=== PATIENT | male | born 1975 | race Caucasian/White ===

== ENCOUNTER 2025-06-16 20:11 | Observation (INO) ==
[2025-06-16 20:36] LABS: Hematocrit (blood only) 41.6 % (42.0-52.0); Hemoglobin 13.7 g/dl (14.0-18.0); Immature Granulocytes # (auto) 0.02 K/uL (0.01-0.20); Immature Granulocytes % (auto) 0.3 %; Mean Corpuscular Hemoglobin 26.8 pg (25.0-34.0); Mean Corpuscular Volume 81.4 fL (80.0-100.0); Platelet Count 200 K/uL (130-400); RDW Standard Deviation 36.6 fL (36.4-46.3); Red Blood Count 5.11 M/uL (4.70-6.10); White Blood Count 6.95 K/ul (4.8-10.8)
[2025-06-16] MEDS: NITROGLYCERIN SL 0.4 MG/TAB TAB SL PRN (20:37)
[2025-06-16] MEDS: NITROGLYCERIN 2% OINTMENT 30GM TUBE EXT STA (20:38)
[2025-06-16] MEDS: SODIUM CHLORIDE 0.9% 500 ML IV STA (20:41)
[2025-06-16 20:54] LABS: Anion Gap 7.0 (3-11); Blood Urea Nitrogen 10.0 mg/dl (6-23); Calcium 9.2 mg/dl (8.6-10.3); Carbon Dioxide 26.0 mmol/L (21-32); Chloride 105.0 mmol/L (98-107); Creatinine Clr Calc Pharmacy 80.9 ml/min; Glucose 98.0 mg/dl (70-99(Fasting)); Lipase 64.0 U/L (11-82); Potassium 3.9 mmol/L (3.5-5.1); Sodium 138.0 mmol/L (136-145)
[2025-06-16 21:04] LABS: INR 1.1 (0.9-1.1); Partial Thromboplastin Time 26 Seconds (21-31); Prothrombin Time 11.1 Seconds (9.0-12.0)
[2025-06-16] MEDS: MoRPHine SULFATE 4 MG/ML 1 ML CARP\\VIAL ONE (21:05)
[2025-06-16] MEDS: MoRPHine SULFATE 2 MG/ML CARP IV STA (21:06)
[2025-06-16] MEDS: OPTIRAY 320 125ml IV ONE (21:24)
--- NOTE | 2025-06-16 22:07 | XRay Report ---
Exam(s): XR CXR 1 VIEW EXAM: XR Chest, 1 View CLINICAL HISTORY: Reason for exam: Chest pain, nonspecific. TECHNIQUE: Frontal view of the chest. COMPARISON: 11/30/2022 FINDINGS: Lungs: Unremarkable. No consolidation. Pleural space: Unremarkable. No pneumothorax. Heart: Unremarkable. No cardiomegaly. Mediastinum: Unremarkable. Normal mediastinal contour. Bones/joints: Unremarkable. No acute fracture. IMPRESSION: No acute pulmonary pathology Electronically signed by: Cristian Mathur MD 06/16/25 22:06 PM
--- NOTE | 2025-06-16 22:19 | CT Scan Report ---
Exam(s): CTA ABDOMEN + PELVIS With Contrast IV Amt: 115 ml optiray 320 EXAM: CT Abdomen and Pelvis With Intravenous Contrast CLINICAL HISTORY: Reason for exam: ro dissection. TECHNIQUE: Axial computed tomographic images of the abdomen and pelvis with intravenous contrast. CTDI is 70.48 mGy and DLP is 3039.38 mGy-cm. Automated exposure control was utilized for the study. A dose lowering technique was utilized adhering to the principles of ALARA. CONTRAST: Patient received 115 ml optiray 320 of IV contrast COMPARISON: No relevant prior studies available. FINDINGS: VASCULATURE: Aorta: No acute findings. No abdominal aortic aneurysm. No dissection. Celiac trunk and mesenteric arteries: No acute findings. No occlusion or significant stenosis. Renal arteries: No acute findings. No occlusion or significant stenosis. Iliac arteries: No acute findings. No occlusion or significant stenosis. Lung bases: Unremarkable. No mass. No consolidation. ABDOMEN: Liver: Hepatic steatosis. Gallbladder and bile ducts: Unremarkable. No calcified stones. No ductal dilation. Pancreas: Unremarkable. No ductal dilation. No mass. Spleen: Unremarkable. No splenomegaly. Adrenals: Unremarkable. No mass. Kidneys and ureters: Simple 5.2 cm left renal cysts. No follow-up of these simple cysts is necessary. No hydronephrosis. Stomach and bowel: Unremarkable. No obstruction. No mucosal thickening. PELVIS: Appendix: No findings to suggest acute appendicitis. Bladder: Mildly distended urinary bladder. Reproductive: Unremarkable as visualized. ABDOMEN and PELVIS: Intraperitoneal space: Unremarkable. No significant fluid collection. No free air. Bones/joints: Postop changes L4 through S1 interbody fusion postop changes anterior fusion L5-S1. No acute fracture. No dislocation. Soft tissues: Unremarkable. Lymph nodes: Unremarkable. No enlarged lymph nodes. IMPRESSION: No acute findings in the arteries of the abdomen and pelvis. Electronically signed by: Cristian Mathur MD 06/16/25 22:18 PM
--- NOTE | 2025-06-16 22:55 | CT Scan Report ---
Exam(s): CTA CHEST W/WO Contrast IV Amt: 116 ml optiray 320 EXAM: CT Angiography Chest Without and With Intravenous Contrast CLINICAL HISTORY: Reason for exam: ro dissection. TECHNIQUE: Axial computed tomographic angiography images of the chest without and with intravenous contrast. CTDI is 70.48 mGy and DLP is 3039.38 mGy-cm. Automated exposure control was utilized for the study. A dose lowering technique was utilized adhering to the principles of ALARA. MIP reconstructed images were created and reviewed. CONTRAST: Patient received 116 ml optiray 320 of IV contrast COMPARISON: No relevant prior studies available. FINDINGS: Pulmonary arteries: Unremarkable. No pulmonary embolism. Aorta: No acute findings. No thoracic aortic aneurysm. Lungs: Unremarkable. No mass. No consolidation. Pleural space: Unremarkable. No significant effusion. No pneumothorax. Heart: Unremarkable. No cardiomegaly. No significant pericardial effusion. No evidence of RV dysfunction. Bones/joints: No acute fracture. No dislocation. Soft tissues: Unremarkable. Lymph nodes: Unremarkable. No enlarged lymph nodes. Other findings: Please see separate dictation for details of the intra abdominal contents. IMPRESSION: No acute findings in the visualized arteries of the chest. Electronically signed by: Cristian Mathur MD 06/16/25 22:54 PM
[2025-06-16 23:01] LABS: Amphetamines+Metham, Urine Neg (Neg); MDMA (Ecstacy), Urine Neg (Neg); Marijuana, Urine Neg (Neg)
--- NOTE | 2025-06-17 00:27 | Emergency Department Note ---
History of Present Illness General Chief Complaint: Cardiac Assessment Stated Complaint: SOB, CHEST PAIN, DIAPHORETIC Time Seen by Provider: 06/16/25 20:19 History of Present Illness Provider Complaint: chest pain Onset (ago): hour(s) 1 Duration: constant and progressively worsening Onset: during exertion Pain Location: substernal and left chest Pain Radiation: LUE Severity: moderate Maximum Pain Intensity: 7 Quality: + heaviness (Pressure) Relieved By: + nothing Exacerbated By: + nothing Context: no recent illness, no recent surgery, no recent immobilization, no recent travel, no trauma/injury, no new medications or no history of DVT/PE Associated symptoms: + diaphoresis and + dyspnea; no nausea, no vomiting, no syncope, no palpitations, no fever, no cough or no leg swelling Treatments prior to arrival: aspirin and nitroglycerin Home Medications Medication Instructions Recorded Confirmed Type omega 8-pam-xqp-fish oil 60 mg-90 1 cap PO DAILY 02/09/22 06/16/25 History mg-500 mg capsule (Fish Oil) dapsone 5 % topical gel 1 applic topical QAM 11/30/22 06/16/25 History fluticasone propionate 50 1 spray intranasal BID 11/30/22 06/16/25 History mcg/actuation nasal spray,suspension tazarotene 0.1 % topical gel 1 applic topical DAILY 11/30/22 06/16/25 History atomoxetine 80 mg capsule 80 mg PO HS 06/16/25 06/16/25 History atorvastatin 20 mg tablet 20 mg PO QAM 06/16/25 06/16/25 History buprenorphine HCl 300 mcg buccal 300 mcg buccal BID 06/16/25 06/16/25 History film (Belbuca) cyclobenzaprine 5 mg tablet 5 mg PO BID PRN MUSCLE SPASMS 06/16/25 06/16/25 History doxepin 150 mg capsule 150 mg PO HS 06/16/25 06/16/25 History lumateperone 42 mg capsule 42 mg PO HS 06/16/25 06/16/25 History (Caplyta) omeprazole 40 mg capsule,delayed 40 mg PO BID 06/16/25 06/16/25 History release oxycodone-acetaminophen 5 mg-325 1 tab PO Q6H PRN Pain 06/16/25 06/16/25 History mg tablet tadalafil 5 mg tablet 5 mg PO DIRECTED 06/16/25 06/17/25 History Allergies Allergy/AdvReac Type Severity Reaction Status Date / Time No Known Allergies Allergy Verified 06/16/25 22:24 Past Med/Surg History Problem List Chronic pain syndrome (Chronic) Tremor (Chronic) Sleep apnea (Chronic) GERD (gastroesophageal reflux disease) (Chronic) Bipolar 1 disorder (Chronic) Medical History Failed spinal cord stimulator Surgical History History of lumbar fusion Social History Smoking Status: Never smoker Tobacco Type: Smokeless Tobacco (Dip or Chew) Preferred Language: Guatemalan marital status: Current Living Situation: Family current occupational status: employed Feels Safe at Home: Yes Physical Exam Vital Signs Vital Signs - 24 hr 06/16/25 20:16 06/16/25 20:29 06/16/25 20:30 Temperature 37 C Temperature Source Oral Pulse Rate 86 86 Pulse Rate [Left Apical] Respiratory Rate 18 Respiratory Effort / Characteristics Spontaneous Short of Breath Respiratory Depth Normal Respiratory Pattern Regular Blood Pressure 120/96 129/87 Blood Pressure [Left Arm] Blood Pressure Mean 104 93 Blood Pressure Mean [Left Arm] Pulse Oximetry 96 Oxygen Delivery Method Room Air Oxygen Flow Rate Sepsis Recent Fever Within 48 Hours No Sepsis New/Unexplained Change in Mental Status N/A Sepsis Action Taken by Nursing No Action Required 06/16/25 20:32 06/16/25 20:42 06/16/25 20:43 Temperature Temperature Source Pulse Rate 88 Pulse Rate [Left Apical] 104 H Respiratory Rate 25 H 24 Respiratory Effort / Characteristics Spontaneous Short of Breath Respiratory Depth Normal Respiratory Pattern Regular Blood Pressure Blood Pressure [Left Arm] 107/80 Blood Pressure Mean Blood Pressure Mean [Left Arm] 89 Pulse Oximetry 96 95 96 Oxygen Delivery Method Room Air Room Air Room Air Oxygen Flow Rate 0 Sepsis Recent Fever Within 48 Hours Sepsis New/Unexplained Change in Mental Status Sepsis Action Taken by Nursing 06/16/25 21:31 06/16/25 22:03 06/16/25 22:30 Temperature Temperature Source Pulse Rate 72 82 Pulse Rate [Left Apical] 76 Respiratory Rate 21 25 H 19 Respiratory Effort / Characteristics Spontaneous Short of Breath Respiratory Depth Normal Respiratory Pattern Regular Blood Pressure 131/92 127/90 Blood Pressure [Left Arm] 129/75 Blood Pressure Mean 105 102 Blood Pressure Mean [Left Arm] 93 Pulse Oximetry 98 98 97 Oxygen Delivery Method Room Air Room Air Room Air Oxygen Flow Rate Sepsis Recent Fever Within 48 Hours Sepsis New/Unexplained Change in Mental Status Sepsis Action Taken by Nursing Physical Exam HENT: Exam performed. - Head: Normocephalic and atraumatic. NECK: Normal range of motion. Neck supple. No JVD present. CV: Normal rate, regular rhythm, normal heart sounds and intact distal pulses. There is no peripheral edema. Palpable radial pulses bue. PULM/CHEST: Effort normal and breath sounds normal. No respiratory distress. No stridor. no wheezes. no rales. ABD: The abdomen is soft. There is no tenderness. NEURO: Motor and sensation grossly intact. SKIN: Diaphoretic Course Course 2019: The patient was evaluated in room B8. A complete history and physical exam was performed Cardiac monitoring: An order was placed for continuous cardiac monitoring. The monitor shows a rate of 70 with sinus rhythm interpreted by me 2040: Vital signs stable. Patient still reporting chest pain status post sublingual nitroglycerin. Nitropaste ordered for the patient. 2051: Patient still having chest pain. Morphine ordered for the patient. 2244: Vital signs stable. Patient reports chest pain is improved status post IV morphine. 5: Vital signs stable. Labs are unremarkable including 2 negative sets of high-sensitivity troponins. CTA of the chest abdomen pelvis negative for dissection. Patient reports that his pain is much better after receiving the IV morphine and having the Nitropaste on. Patient is no longer diaphoretic. Patient will be admitted to the [facility] team. Administered Medications Nitroglycerin (Nitroglycerin Sl 0.4 Mg/Tab Tab) 0.4 mg SL Q5M PRN PRN Reason: Chest Pain Stop: 07/16/25 20:21 Last Admin: 06/16/25 20:37 Dose: 0.4 mg Documented By: KASSANDRA Discontinued Medications Sodium Chloride (Nss) 500 mls @ 999 mls/hr IV .Q31M STA Stop: 06/16/25 20:52 Last Infusion: 06/16/25 22:00 Dose: Infused Documented By: Admin: 06/16/25 20:41 Dose: 999 mls/hr Documented By: SAMSON Ioversol (Optiray 320 125ml) 115 ml IV ONCE ONE Stop: 06/16/25 21:24 Last Admin: 06/16/25 21:24 Dose: 115 ml Documented By: NIXON Morphine Sulfate (Morphine Sulfate 2 Mg/Ml Carp) 2 mg IV NOW STA Stop: 06/16/25 20:53 Last Admin: 06/16/25 21:06 Dose: 2 mg Documented By: SAMSON Morphine Sulfate (Morphine Sulfate 4 Mg/Ml 1 Ml Carp\\Vial) Confirm Administered Dose 4 mg .ROUTE .STK-MED ONE Stop: 06/16/25 21:04 Last Admin: 06/16/25 21:05 Dose: Not Given Documented By: SAMSON Nitroglycerin (Nitroglycerin 2% Ointment 30gm Tube) 0.5 inch EXT NOW STA Stop: 06/16/25 20:23 Last Admin: 06/16/25 20:38 Dose: 0.5 inch Documented By: SAMSON Medical Decision Making Laboratory Data Attestation: I reviewed the patient's lab results. 06/16/25 20:24 06/16/25 20:24 Labs: Lab Results 06/16/25 06/16/25 06/16/25 Range/Units 20:24 20:30 21:45 WBC 6.95 (4.8-10.8) K/ul RBC 5.11 (4.70-6.10) M/uL Hgb 13.7 L (14.0-18.0) g/dl POC Hgb 14.6 (14.0-18.0) g/dl Hct 41.6 L (42.0-52.0) % POC Hct 43 (42-52) % MCV 81.4 (80.0-100.0) fL MCH 26.8 (25.0-34.0) pg MCHC 32.9 (32.0-36.0) g/dL RDW Std Deviation 36.6 (36.4-46.3) fL RDW Coeff of Arturo 12.5 (11.5-14.5) % Plt Count 200 (130-400) K/uL MPV 9.2 L (9.4-12.4) fL Immature Gran % (Auto) 0.3 % Neut % (Auto) 65.3 % Lymph % (Auto) 24.2 % [place] % (Auto) 7.6 % Eos % (Auto) 2.3 % Baso % (Auto) 0.3 % Neut # (Auto) 4.54 (1.40-6.50) K/uL Lymph # (Auto) 1.68 (1.20-3.40) K/uL [place] # (Auto) 0.53 (0.11-0.59) K/uL Eos # (Auto) 0.16 (0.00-0.50) K/uL Baso # (Auto) 0.02 (0.00-0.20) K/uL Immature Gran # (Auto) 0.02 (0.01-0.20) K/uL PT 11.1 (9.0-12.0) Seconds INR 1.1 (0.9-1.1) APTT 26 (21-31) Seconds PTT Ratio 1.0 POC Sodium 140 (135-144) mmol/L Sodium 138 (136-145) mmol/L POC Potassium 3.9 (3.3-5.0) mmol/L Potassium 3.9 (3.5-5.1) mmol/L POC Chloride 105 (101-112) mmol/L Chloride 105 (98-107) mmol/L Carbon Dioxide 26 (21-32) mmol/L POC Total CO2 24 (24-31) mmol/L Anion Gap 7 (3-11) POC Anion Gap 16.0 (16-25) mmol/L POC BUN 8 (7-18) mg/dl BUN 10 (6-23) mg/dl Creatinine 1.41 H (0.6-1.4) mg/dl POC Creatinine 1.5 H (0.6-1.3) mg/dl Est Cr Clr Drug Dosing 80.9 ml/min eGFR 61.09 BUN/Creatinine Ratio 7.1 L (10-20) Glucose 98 (70-99(Fasting)) mg/dl POC Glucose (other) 95 (70-99) mg/dl Calcium 9.2 (8.6-10.3) mg/dl POC Ioniz Calcium Sonny 1.19 (1.12-1.32) mmol/l Troponin I High Sens 3.0 (0-20) pg/ml Lipase 64 (11-82) U/L Urine Opiates Screen Pos H (Neg) Ur Methadone, Qual Neg (Neg) Urine Fentanyl Screen Neg (Neg) Urine Barbiturates Neg (Neg) Ur Phencyclidine (PCP) Neg (Neg) U Amphetamin/Meth Scrn Neg (Neg) MDMA (Ecstasy) Screen Neg (Neg) U Benzodiazepines Scrn Neg (Neg) [place] < 0.1 L (0.6-1.2) mmol/L Ur Cocaine Metabolite Neg (Neg) U Marijuana (THC) Screen Neg (Neg) 06/16/25 Range/Units 22:24 WBC (4.8-10.8) K/ul RBC (4.70-6.10) M/uL Hgb (14.0-18.0) g/dl POC Hgb (14.0-18.0) g/dl Hct (42.0-52.0) % POC Hct (42-52) % MCV (80.0-100.0) fL MCH (25.0-34.0) pg MCHC (32.0-36.0) g/dL RDW Std Deviation (36.4-46.3) fL RDW Coeff of Arturo (11.5-14.5) % Plt Count (130-400) K/uL MPV (9.4-12.4) fL Immature Gran % (Auto) % Neut % (Auto) % Lymph % (Auto) % [place] % (Auto) % Eos % (Auto) % Baso % (Auto) % Neut # (Auto) (1.40-6.50) K/uL Lymph # (Auto) (1.20-3.40) K/uL [place] # (Auto) (0.11-0.59) K/uL Eos # (Auto) (0.00-0.50) K/uL Baso # (Auto) (0.00-0.20) K/uL Immature Gran # (Auto) (0.01-0.20) K/uL PT (9.0-12.0) Seconds INR (0.9-1.1) APTT (21-31) Seconds PTT Ratio POC Sodium (135-144) mmol/L Sodium (136-145) mmol/L POC Potassium (3.3-5.0) mmol/L Potassium (3.5-5.1) mmol/L POC Chloride (101-112) mmol/L Chloride (98-107) mmol/L Carbon Dioxide (21-32) mmol/L POC Total CO2 (24-31) mmol/L Anion Gap (3-11) POC Anion Gap (16-25) mmol/L POC BUN (7-18) mg/dl BUN (6-23) mg/dl Creatinine (0.6-1.4) mg/dl POC Creatinine (0.6-1.3) mg/dl Est Cr Clr Drug Dosing ml/min eGFR BUN/Creatinine Ratio (10-20) Glucose (70-99(Fasting)) mg/dl POC Glucose (other) (70-99) mg/dl Calcium (8.6-10.3) mg/dl POC Ioniz Calcium Sonny (1.12-1.32) mmol/l Troponin I High Sens 2.6 (0-20) pg/ml Lipase (11-82) U/L Urine Opiates Screen (Neg) Ur Methadone, Qual (Neg) Urine Fentanyl Screen (Neg) Urine Barbiturates (Neg) Ur Phencyclidine (PCP) (Neg) U Amphetamin/Meth Scrn (Neg) MDMA (Ecstasy) Screen (Neg) U Benzodiazepines Scrn (Neg) [place] (0.6-1.2) mmol/L Ur Cocaine Metabolite (Neg) U Marijuana (THC) Screen (Neg) Imaging Data Chest x-ray: Attestation: I personally reviewed and interpreted this imaging study as follows: My impression: Chest x-ray negative. Airway clear. No pneumothorax. No consolidation. No cardiomegaly or cephalization.. No free air under the diaphragm. No fractures of the skeletal structures. Radiologist's impression: Exam(s): XR CXR 1 VIEW EXAM: XR Chest, 1 View CLINICAL HISTORY: Reason for exam: Chest pain, nonspecific. TECHNIQUE: Frontal view of the chest. COMPARISON: 11/30/2022 FINDINGS: Lungs: Unremarkable. No consolidation. Pleural space: Unremarkable. No pneumothorax. Heart: Unremarkable. No cardiomegaly. Mediastinum: Unremarkable. Normal mediastinal contour. Bones/joints: Unremarkable. No acute fracture. IMPRESSION: No acute pulmonary pathology Electronically signed by: Cristian Mathur MD 06/16/25 22:06 PM Dictated: 06/16/252205 Transcribed: 06/16/252205 CT scan - chest: Radiologist's impression: Exam(s): CTA CHEST W/WO Contrast IV Amt: 116 ml optiray 320 EXAM: CT Angiography Chest Without and With Intravenous Contrast CLINICAL HISTORY: Reason for exam: ro dissection. TECHNIQUE: Axial computed tomographic angiography images of the chest without and with intravenous contrast. CTDI is 70.48 mGy and DLP is 3039.38 mGy-cm. Automated exposure control was utilized for the study. A dose lowering technique was utilized adhering to the principles of ALARA. MIP reconstructed images were created and reviewed. CONTRAST: Patient received 116 ml optiray 320 of IV contrast COMPARISON: No relevant prior studies available. FINDINGS: Pulmonary arteries: Unremarkable. No pulmonary embolism. Aorta: No acute findings. No thoracic aortic aneurysm. Lungs: Unremarkable. No mass. No consolidation. Pleural space: Unremarkable. No significant effusion. No pneumothorax. Heart: Unremarkable. No cardiomegaly. No significant pericardial effusion. No evidence of RV dysfunction. Bones/joints: No acute fracture. No dislocation. Soft tissues: Unremarkable. Lymph nodes: Unremarkable. No enlarged lymph nodes. Other findings: Please see separate dictation for details of the intra abdominal contents. IMPRESSION: No acute findings in the visualized arteries of the chest. Electronically signed by: Cristian Mathur MD 06/16/25 22:54 PM Dictated: 06/16/252253 Transcribed: 06/16/252253 CT scan - abdomen: Radiologist's impression: EXAM: CT Abdomen and Pelvis With Intravenous Contrast CLINICAL HISTORY: Reason for exam: ro dissection. TECHNIQUE: Axial computed tomographic images of the abdomen and pelvis with intravenous contrast. CTDI is 70.48 mGy and DLP is 3039.38 mGy-cm. Automated exposure control was utilized for the study. A dose lowering technique was utilized adhering to the principles of ALARA. CONTRAST: Patient received 115 ml optiray 320 of IV contrast COMPARISON: No relevant prior studies available. FINDINGS: VASCULATURE: Aorta: No acute findings. No abdominal aortic aneurysm. No dissection. Celiac trunk and mesenteric arteries: No acute findings. No occlusion or significant stenosis. Renal arteries: No acute findings. No occlusion or significant stenosis. Iliac arteries: No acute findings. No occlusion or significant stenosis. Lung bases: Unremarkable. No mass. No consolidation. ABDOMEN: Liver: Hepatic steatosis. Gallbladder and bile ducts: Unremarkable. No calcified stones. No ductal dilation. Pancreas: Unremarkable. No ductal dilation. No mass. Spleen: Unremarkable. No splenomegaly. Adrenals: Unremarkable. No mass. Kidneys and ureters: Simple 5.2 cm left renal cysts. No follow-up of these simple cysts is necessary. No hydronephrosis. Stomach and bowel: Unremarkable. No obstruction. No mucosal thickening. PELVIS: Appendix: No findings to suggest acute appendicitis. Bladder: Mildly distended urinary bladder. Reproductive: Unremarkable as visualized. ABDOMEN and PELVIS: Intraperitoneal space: Unremarkable. No significant fluid collection. No free air. Bones/joints: Postop changes L4 through S1 interbody fusion postop changes anterior fusion L5-S1. No acute fracture. No dislocation. Soft tissues: Unremarkable. Lymph nodes: Unremarkable. No enlarged lymph nodes. IMPRESSION: No acute findings in the arteries of the abdomen and pelvis. Electronically signed by: Cristian Mathur MD 06/16/25 22:18 PM Dictated: 06/16/252217 Transcribed: 06/16/252217 ECG Data Attestation: I personally reviewed and interpreted this ECG as follows: Additional Comments: EKG #1 at 2015: Sinus rhythm with a rate of 79. [place] QRS and QTc intervals within normal limits. No ST elevation or ST depression. EKG #2 at 2156: Sinus rhythm with rate of 70. [place] QRS and QTc intervals are within normal limits. No ST elevation or ST depression. [facility] Narrative 2019: The patient was evaluated in room B8. A complete history and physical exam was performed Cardiac monitoring: An order was placed for continuous cardiac monitoring. The monitor shows a rate of 70 with sinus rhythm interpreted by nd 2039: Vital signs stable. Patient still reporting chest pain status post sublingual nitroglycerin. Nitropaste ordered for the patient. 2051: Patient still having chest pain. Morphine ordered for the patient. 2244: Vital signs stable. Patient reports chest pain is improved status post IV morphine. 2324: Vital signs stable. Labs are unremarkable including 2 negative sets of high-sensitivity troponins. CTA of the chest abdomen pelvis negative for dissection. Patient reports that his pain is much better after receiving the IV morphine and having the Nitropaste on. Patient is no longer diaphoretic. Patient will be admitted to the [facility] team. Impression & Plan Chest pain Discharge Plan Visit Data Chief Complaint: Cardiac Assessment Stated Complaint: SOB, CHEST PAIN, DIAPHORETIC ED Provider: Saman Miller Discharge Problem: Chest pain Patient Disposition: Admitted As Inpatient Condition: Fair Forms Stand Alone Forms: [facility] Prescriptions Prescriptions: No Action omega 2-ren-vux-fish oil [Fish Oil] 60-90-500 mg Capsule 1 cap PO DAILY tazarotene 0.1 % Gel 1 applic TOPICAL DAILY fluticasone propionate 50 mcg/actuation spray,suspension 1 spray INTRANASAL BID dapsone 5 % gel 1 applic TOPICAL QAM atorvastatin 20 mg tablet 20 mg PO QAM omeprazole 40 mg capsule,delayed release(DR/EC) 40 mg PO BID oxycodone-acetaminophen 5-325 mg tablet 1 tab PO Q6H PRN (Reason: Pain) doxepin 150 mg capsule 150 mg PO HS cyclobenzaprine 5 mg Tablet 5 mg PO BID PRN (Reason: MUSCLE SPASMS) tadalafil 5 mg Tablet 5 mg PO DIRECTED Rx Instructions: PRN ED atomoxetine 80 mg capsule 80 mg PO HS buprenorphine HCl [Belbuca] 300 mcg film 300 mcg BUCCAL BID Rx Instructions: PER PT "RAN OUT, PHARMACY NEEDS TO REFILL". Caplyta 42 mg capsule 42 mg PO HS Referrals Referrals: Lacey Slade DO [Primary Care Provider] - Discharge Problem: Chest pain Qualifiers: Chest pain type: unspecified Qualified Code(s): R07.9 - Chest pain, unspecified
--- NOTE | 2025-06-17 00:31 | History & Physical Report ---
Date of Service June 17, 2025 Assessment & Plan (1) Chest pain: Plan: 50-year-old male with past medical history significant for high triglycerides, prediabetes, chronic maxillary sinusitis, obstructive sleep apnea nontolerant to CPAP, uncontrolled hypertension, GERD, Romano's esophagus, fatty liver, renal angiomyolipoma, CKD stage IIIa, spondylolisthesis of lumbar region, postlaminectomy syndrome, multiple lipomas, degenerative disc disease, chronic pain syndrome, essential tremor, bipolar 2 disorder, erectile dysfunction, spinal cord stimulator status, generalized anxiety disorder, presents for chest pain. Patient states around 7 PM after coming from football practice noticed chest pain 8/10 in severity. Pain is all over the chest. Pressure-like feeling. No radiation. Associated with some shortness of breath. Possibly some sweating. Denies any dizziness. No nausea. No headache. Vision is okay. No runny nose or sore throat. No cough. No abdominal pain. Normal bowel and bladder movements. After Nitropaste and morphine in the ER pain is improving. Hemodynamics are okay. Chest pain EKG and 2 sets of troponin negative Received Nitropaste and morphine in the ER Will continue nitro sublingual as needed and IV morphine as needed CTA chest and CTA abdomen pelvis no acute findings N.p.o. Will follow serial cardiac enzymes and echocardiogram Med/telemetry Cardiac consult in a.m. for further recommendations Prediabetes Will follow HbA1c levels Bipolar disorder Continue home medications Chronic pain On Belbuca and oxycodone as needed Obstructive sleep apnea Intolerant to CPAP machine Hyperlipidemia On statin GERD Romano's esophagus Omeprazole History of hypertension Currently not on medications Will monitor Erectile dysfunction On Cialis as needed Patient says did not use it for the last 1 month DVT prophylaxis SCDs Disposition Observation med/telemetry Full code History of Present Illness Chief Complaint: Chest pain Primary Care Provider: Lacey Slade DO 50-year-old male with past medical history significant for high triglycerides, prediabetes, chronic maxillary sinusitis, obstructive sleep apnea nontolerant to CPAP, uncontrolled hypertension, GERD, Romano's esophagus, fatty liver, renal angiomyolipoma, CKD stage IIIa, spondylolisthesis of lumbar region, postlaminectomy syndrome, multiple lipomas, degenerative disc disease, chronic pain syndrome, essential tremor, bipolar 2 disorder, erectile dysfunction, spinal cord stimulator status, generalized anxiety disorder, presents for chest pain. Patient states around 7 PM after coming from football practice noticed chest pain 8/10 in severity. Pain is all over the chest. Pressure-like feeling. No radiation. Associated with some shortness of breath. Possibly some sweating. Denies any dizziness. No nausea. No headache. Vision is okay. No runny nose or sore throat. No cough. No abdominal pain. Normal bowel and bladder movements. After Nitropaste and morphine in the ER pain is improving. Hemodynamics are okay. Past medical history. As mentioned above. Past surgical history. Bone marrow aspiration for spine. Right carpal tunnel surgery. Colonoscopy. EGD. Osteogenic stimulator spine in 2014. Reconstructionof nose septum. Total thyroid lobectomy unilateral. Removal of turbinate bones. Lumbar laminectomy. 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 Revision ulnar nerve at elbow right side. Lumbar spine fusion. Excision of soft tissue tumor in left thigh. Social history. . No smoking. Snuffs tobacco. Currently no alcohol as per records. No drug use. Family history. Brother had asthma. Paternal grandfather had blood disorder. Father had lung cancer. Multiple myeloma. Paternal cousin had thyroid cancer. Paternal uncle had cancer. Maternal aunt had pancreatic cancer. Allergies Allergy/AdvReac Type Severity Reaction Status Date / Time No Known Allergies Allergy Verified 06/16/25 22:24 Home Medications Medication Instructions Recorded Confirmed Type omega 9-ksh-vnp-fish oil 60 mg-90 1 cap PO DAILY 02/09/22 06/16/25 History mg-500 mg capsule (Fish Oil) dapsone 5 % topical gel 1 applic topical QAM 11/30/22 06/16/25 History fluticasone propionate 50 1 spray intranasal BID 11/30/22 06/16/25 History mcg/actuation nasal spray,suspension tazarotene 0.1 % topical gel 1 applic topical DAILY 11/30/22 06/16/25 History atomoxetine 80 mg capsule 80 mg PO HS 06/16/25 06/16/25 History atorvastatin 20 mg tablet 20 mg PO QAM 06/16/25 06/16/25 History buprenorphine HCl 300 mcg buccal 300 mcg buccal BID 06/16/25 06/16/25 History film (Belbuca) cyclobenzaprine 5 mg tablet 5 mg PO BID PRN MUSCLE SPASMS 06/16/25 06/16/25 History doxepin 150 mg capsule 150 mg PO HS 06/16/25 06/16/25 History lumateperone 42 mg capsule 42 mg PO HS 06/16/25 06/16/25 History (Caplyta) omeprazole 40 mg capsule,delayed 40 mg PO BID 06/16/25 06/16/25 History release oxycodone-acetaminophen 5 mg-325 1 tab PO Q6H PRN Pain 06/16/25 06/16/25 History mg tablet tadalafil 5 mg tablet 5 mg PO DIRECTED 06/16/25 06/17/25 History Past Med/Surg History Problem List (Updated 06/17/25 @ 00:27 by Timmy Vance MD) Chest pain Chronic pain syndrome (Chronic) Tremor (Chronic) Sleep apnea (Chronic) GERD (gastroesophageal reflux disease) (Chronic) Bipolar 1 disorder (Chronic) Medical History Failed spinal cord stimulator Surgical History History of lumbar fusion Social History Smoking Status: Never smoker Tobacco Type: Smokeless Tobacco (Dip or Chew) Do You Dip or Chew Tobacco: Yes; Hx Alcohol Use: No Hx Substance Use: No Preferred Language: Kiswahili Communication Ability: Effective Retail Pharmacy Technician Required: No Beliefs That Will Affect Care: None marital status: Current Living Situation: Spouse and Family current occupational status: employed Feels Safe at Home: Yes Safety Concerns: Feels Safe At This Time Assistive Devices: None Review of Systems Review of Systems: All systems reviewed & are unremarkable except as noted in HPI & below Physical Exam Physical Exam: General- Not in distress Head- atraumatic Eyes- PERRL. ENT- oropharynx clear Neck- supple, no JVD. Lungs- clear to auscultation no wheezing or crackles Heart- regular rhythm; no murmur, no gallop. Abdomen- normal bowel sounds, soft, nontender, no distension Extremities- no pretibial edema, no erythema seen Neuro- alert, oriented PERRL, no facial palsy; no dysarthria; moves extremities Results & Data Results & Data Vital Signs (Past 12 Hours) Vital Signs Temp Pulse Pulse Resp BP BP Pulse Ox 10/14/25 22:30 82 19 127/90 97 06/16/25 22:03 72 25 H 131/92 98 06/16/25 21:31 76 21 129/75 98 06/16/25 20:43 104 H 24 107/80 96 06/16/25 20:42 95 06/16/25 20:32 88 25 H 96 06/16/25 20:30 129/87 06/16/25 20:29 37 C 86 18 120/96 96 06/16/25 20:16 86 O2 Del Method O2 Flow Rate 06/16/25 22:30 Room Air 06/16/25 22:03 Room Air 06/16/25 21:31 Room Air 06/16/25 20:43 Room Air 06/16/25 20:42 Room Air 0 06/16/25 20:32 Room Air 06/16/25 20:30 06/16/25 20:29 Room Air 06/16/25 20:16 Diagnostic Findings Laboratory Results WBC 6.95 K/ul (4.8-10.8) 06/16/25 20:24 RBC 5.11 M/uL (4.70-6.10) 06/16/25 20:24 Hgb 13.7 g/dl (14.0-18.0) L 06/16/25 20:24 POC Hgb 14.6 g/dl (14.0-18.0) 06/16/25 20:30 Hct 41.6 % (42.0-52.0) L 06/16/25 20:24 POC Hct 43 % (42-52) 06/16/25 20:30 MCV 81.4 fL (80.0-100.0) 06/16/25 20:24 MCH 26.8 pg (25.0-34.0) 06/16/25 20:24 MCHC 32.9 g/dL (32.0-36.0) 06/16/25 20:24 RDW Std Deviation 36.6 fL (36.4-46.3) 06/16/25 20:24 RDW Coeff of Arturo 12.5 % (11.5-14.5) 06/16/25 20:24 Plt Count 200 K/uL (130-400) 06/16/25 20:24 MPV 9.2 fL (9.4-12.4) L 06/16/25 20: Immature Gran % (Auto) 0.3 % 06/16/25 20:24 Neut % (Auto) 65.3 % 06/16/25 20: Lymph % (Auto) 24.2 % 06/16/25 20: [place] % (Auto) 7.6 % 06/16/25 20: Eos % (Auto) 2.3 % 06/16/25: Baso % (Auto) 0.3 % 06/16/25: Neut # (Auto) 4.54 K/uL (1.40-6.50) 06/16/25: Lymph # (Auto) 1.68 K/uL (1.20-3.40) 06/16/25 20: [place] # (Auto) 0.53 K/uL (0.11-0.59) 06/16/25 20: Eos # (Auto) 0.16 K/uL (0.00-0.50) 06/16/25: Baso # (Auto) 0.02 K/uL (0.00-0.20) 06/16/25 20: Immature Gran # (Auto) 0.02 K/uL (0.01-0.20) 06/16/25 20: PT 11.1 Seconds (9.0-12.0) 06/16/25 20:24 INR 1.1 (0.9-1.1) 06/16/25 20: APTT 26 Seconds (21-31) 06/16/25 20: PTT Ratio 1.0 06/16/25 20:24 POC Sodium 140 mmol/L (135-144) 06/16/25 20:30 Sodium 138 mmol/L (136-145) 06/16/25 20:24 POC Potassium 3.9 mmol/L (3.3-5.0) 06/16/25 20: Potassium 3.9 mmol/L (3.5-5.1) 06/16/25 20:24 POC Chloride 105 mmol/L (101-112) 06/16/25 20: Chloride 105 mmol/L (98-107) 06/16/25 20:24 Carbon Dioxide 26 mmol/L (21-32) 06/16/25 20:24 POC Total CO2 24 mmol/L (24-31) 06/16/25 20:30 Anion Gap 7 (3-11) 06/16/25 20:24 POC Anion Gap 16.0 mmol/L (16-25) 06/16/25 20:30 POC BUN 8 mg/dl (7-18) 06/16/25 20:30 BUN 10 mg/dl (6-23) 06/16/25 20:24 Creatinine 1.41 mg/dl (0.6-1.4) H 06/16/25 20:24 POC Creatinine 1.5 mg/dl (0.6-1.3) H 06/16/25 20:30 Est Cr Clr Drug Dosing 80.9 ml/min 06/16/25 20:24 eGFR 61.09 06/16/25 20:24 BUN/Creatinine Ratio 7.1 (10-20) L 06/16/25 20:24 Glucose 98 mg/dl (70-99(Fasting)) 06/16/25 20:24 POC Glucose (other) 95 mg/dl (70-99) 06/16/25 20:30 Calcium 9.2 mg/dl (8.6-10.3) 06/16/25 20:24 POC Ioniz Calcium Sonny 1.19 mmol/l (1.12-1.32) 06/16/25 20:30 Troponin I High Sens 2.6 pg/ml (0-20) 06/16/25 22:24 Lipase 64 U/L (11-82) 06/16/25 20:24 Urine Opiates Screen Pos (Neg) H 06/16/25 21:45 Ur Methadone, Qual Neg (Neg) 06/16/25 21:45 Urine Fentanyl Screen Neg (Neg) 06/16/25 21:45 Urine Barbiturates Neg (Neg) 06/16/25 21:45 Ur Phencyclidine (PCP) Neg (Neg) 06/16/25 21:45 U Amphetamin/Meth Scrn Neg (Neg) 06/16/25 21:45 MDMA (Ecstasy) Screen Neg (Neg) 06/16/25 21:45 U Benzodiazepines Scrn Neg (Neg) 06/16/25 21:45 [place] < 0.1 mmol/L (0.6-1.2) L 06/16/25 20:24 Ur Cocaine Metabolite Neg (Neg) 06/16/25 21:45 U Marijuana (THC) Screen Neg (Neg) 06/16/25 21:45 Impressions Chest X-Ray 06/16/25 20:22 Exam(s): XR CXR 1 VIEW EXAM: XR Chest, 1 View CLINICAL HISTORY: Reason for exam: Chest pain, nonspecific. TECHNIQUE: Frontal view of the chest. COMPARISON: 11/30/2022 FINDINGS: Lungs: Unremarkable. No consolidation. Pleural space: Unremarkable. No pneumothorax. Heart: Unremarkable. No cardiomegaly. Mediastinum: Unremarkable. Normal mediastinal contour. Bones/joints: Unremarkable. No acute fracture. IMPRESSION: No acute pulmonary pathology Electronically signed by: Cristian Mathur MD 06/16/25 22:06 PM Abdomen/Pelvis CTA 06/16/25 21:09 Exam(s): CTA ABDOMEN + PELVIS With Contrast IV Amt: 115 ml optiray 320 EXAM: CT Abdomen and Pelvis With Intravenous Contrast CLINICAL HISTORY: Reason for exam: ro dissection. TECHNIQUE: Axial computed tomographic images of the abdomen and pelvis with intravenous contrast. CTDI is 70.48 mGy and DLP is 3039.38 mGy-cm. Automated exposure control was utilized for the study. A dose lowering technique was utilized adhering to the principles of ALARA. CONTRAST: Patient received 115 ml optiray 320 of IV contrast COMPARISON: No relevant prior studies available. FINDINGS: VASCULATURE: Aorta: No acute findings. No abdominal aortic aneurysm. No dissection. Celiac trunk and mesenteric arteries: No acute findings. No occlusion or significant stenosis. Renal arteries: No acute findings. No occlusion or significant stenosis. Iliac arteries: No acute findings. No occlusion or significant stenosis. Lung bases: Unremarkable. No mass. No consolidation. ABDOMEN: Liver: Hepatic steatosis. Gallbladder and bile ducts: Unremarkable. No calcified stones. No ductal dilation. Pancreas: Unremarkable. No ductal dilation. No mass. Spleen: Unremarkable. No splenomegaly. Adrenals: Unremarkable. No mass. Kidneys and ureters: Simple 5.2 cm left renal cysts. No follow-up of these simple cysts is necessary. No hydronephrosis. Stomach and bowel: Unremarkable. No obstruction. No mucosal thickening. PELVIS: Appendix: No findings to suggest acute appendicitis. Bladder: Mildly distended urinary bladder. Reproductive: Unremarkable as visualized. ABDOMEN and PELVIS: Intraperitoneal space: Unremarkable. No significant fluid collection. No free air. Bones/joints: Postop changes L4 through S1 interbody fusion postop changes anterior fusion L5-S1. No acute fracture. No dislocation. Soft tissues: Unremarkable. Lymph nodes: Unremarkable. No enlarged lymph nodes. IMPRESSION: No acute findings in the arteries of the abdomen and pelvis. Electronically signed by: Cristian Mathur MD 06/16/25 22:18 PM Chest CTA 06/16/25 21:09 Exam(s): CTA CHEST W/WO Contrast IV Amt: 116 ml optiray 320 EXAM: CT Angiography Chest Without and With Intravenous Contrast CLINICAL HISTORY: Reason for exam: ro dissection. TECHNIQUE: Axial computed tomographic angiography images of the chest without and with intravenous contrast. CTDI is 70.48 mGy and DLP is 3039.38 mGy-cm. Automated exposure control was utilized for the study. A dose lowering technique was utilized adhering to the principles of ALARA. MIP reconstructed images were created and reviewed. CONTRAST: Patient received 116 ml optiray 320 of IV contrast COMPARISON: No relevant prior studies available. FINDINGS: Pulmonary arteries: Unremarkable. No pulmonary embolism. Aorta: No acute findings. No thoracic aortic aneurysm. Lungs: Unremarkable. No mass. No consolidation. Pleural space: Unremarkable. No significant effusion. No pneumothorax. Heart: Unremarkable. No cardiomegaly. No significant pericardial effusion. No evidence of RV dysfunction. Bones/joints: No acute fracture. No dislocation. Soft tissues: Unremarkable. Lymph nodes: Unremarkable. No enlarged lymph nodes. Other findings: Please see separate dictation for details of the intra abdominal contents. IMPRESSION: No acute findings in the visualized arteries of the chest. Electronically signed by: Cristian Mathur MD 06/16/25 22:54 PM ECG Additional Comments: ECG normal sinus rhythm rate of 70. No significant changes found. QTc 447. Code Status & VTE Plan VTE Prophylaxis Plan VTE Prophylaxis will be ordered: Yes
[2025-06-17] MEDS: FAMOTIDINE 20MG IV PUSH 20 MG/5 ML SYR IV STA (00:57)
[2025-06-17] MEDS: DOXEPIN HCL 75 MG CAPSULE PO STA (01:43)
[2025-06-17] MEDS: ATOMOXETINE HCL 40 MG CAPSULE PO STA (01:43)
[2025-06-17] MEDS ORDERED: ACETAMINOPHEN 325 MG TAB PO PRN (02:32)
[2025-06-17] MEDS ORDERED: MoRPHine SULFATE 4 MG/ML 1 ML CARP\\VIAL IV PRN (02:32)
[2025-06-17] MEDS ORDERED: NITROGLYCERIN SL 0.4 MG/TAB TAB SL PRN (02:32)
[2025-06-17] MEDS ORDERED: CYCLOBENZAPRINE HCL 10 MG TAB PO PRN (02:32)
[2025-06-17 06:23] LABS: Hematocrit (blood only) 37.6 % (42.0-52.0); Hemoglobin 12.5 g/dl (14.0-18.0); Immature Granulocytes # (auto) 0.01 K/uL (0.01-0.20); Immature Granulocytes % (auto) 0.2 %; Mean Corpuscular Hemoglobin 27.2 pg (25.0-34.0); Mean Corpuscular Volume 81.9 fL (80.0-100.0); Platelet Count 155 K/uL (130-400); RDW Standard Deviation 37.2 fL (36.4-46.3); Red Blood Count 4.59 M/uL (4.70-6.10); White Blood Count 4.70 K/ul (4.8-10.8)
[2025-06-17 06:37] LABS: Anion Gap 7.0 (3-11); Blood Urea Nitrogen 9.0 mg/dl (6-23); Calcium 8.4 mg/dl (8.6-10.3); Carbon Dioxide 24.0 mmol/L (21-32); Chloride 109.0 mmol/L (98-107); Creatinine Clr Calc Pharmacy 103.7 ml/min; Glucose 97.0 mg/dl (70-99(Fasting)); Magnesium 1.8 mg/dl (1.7-2.4); Potassium 3.8 mmol/L (3.5-5.1); Sodium 140.0 mmol/L (136-145)
[2025-06-17 07:38] VITALS: RESP 18
[2025-06-17 08:14] LABS: Hemoglobin A1C 5.8 % (4.5-5.6)
--- NOTE | 2025-06-17 09:07 | Cardiology Consultation ---
Date of Consultation June 17, 2025 Assessment & Plan (1) Chest pain: (2) Chronic pain syndrome: (3) GERD (gastroesophageal reflux disease): Plan 50-year-old male admitted after developing squeezing chest pain during a severe emotional stress. Initial cardiac enzymes and EKG without evidence of myocardial injury or ischemia. Cardiovascular risk factors of hypertension dyslipidemia. Review of additional studies reveals no evidence of pulmonary embolus no coronary calcification on noncardiac CT. Exercise capacity limited due to chronic back issues. Recommendations: Complete cardiac evaluation with stress dobutamine echocardiography. Patient agreeable to plan order placed History of Present Illness Reason for Consultation: Chest pain [facility] Attending Physician: Lane Henry MD History of Present Illness Patient is a 50-year-old male without prior history of cardiac disease with underlying cardiac concerns which include hypertension, dyslipidemia, prediabetes. Other issues include chronic obstructive sleep apnea intolerant of CPAP, Romano's esophagus Patient presented to the ER after developing squeezing chest pain during emotional stress, angry at son. Symptoms lasted several hours before finally resolving and hospital. Received Nitropaste and morphine. EKGs and enzymes without acute injury or ischemia pattern Currently asymptomatic. Telemetry without arrhythmias.. No history rheumatic fever scarlet fever renal or hepatic disease. Appetite stable with fair appetite. Activity tolerance significantly limited secondary to chronic back issues No prior history of myocardial infarction angina or congestive heart failure No recent fevers chills or unexplained infections. No bleeding difficulties. Allergies Allergy/AdvReac Type Severity Reaction Status Date / Time No Known Allergies Allergy Verified 06/16/25 22:24 Home Medications Medication Instructions Recorded Confirmed Type omega 9-rtr-nle-fish oil 60 mg-90 1 cap PO DAILY 02/09/22 06/16/25 History mg-500 mg capsule (Fish Oil) dapsone 5 % topical gel 1 applic topical QAM 11/30/22 06/16/25 History fluticasone propionate 50 1 spray intranasal BID 11/30/22 06/16/25 History mcg/actuation nasal spray,suspension tazarotene 0.1 % topical gel 1 applic topical DAILY 11/30/22 06/16/25 History atomoxetine 80 mg capsule 80 mg PO HS 06/16/25 06/16/25 History atorvastatin 20 mg tablet 20 mg PO QAM 06/16/25 06/16/25 History buprenorphine HCl 300 mcg buccal 300 mcg buccal BID 06/16/25 06/16/25 History film ([place]uca) cyclobenzaprine 5 mg tablet 5 mg PO BID PRN MUSCLE SPASMS 06/16/25 06/16/25 History doxepin 150 mg capsule 150 mg PO HS 06/16/25 06/16/25 History lumateperone 42 mg capsule 42 mg PO HS 06/16/25 06/16/25 History (Caplyta) omeprazole 40 mg capsule,delayed 40 mg PO BID 06/16/25 06/16/25 History release oxycodone-acetaminophen 5 mg-325 1 tab PO Q6H PRN Pain 06/16/25 06/16/25 History mg tablet tadalafil 5 mg tablet 5 mg PO DIRECTED 06/16/25 06/17/25 History Patient History Medical History Failed spinal cord stimulator Surgical History History of lumbar fusion Social History Smoking Status: Never smoker Tobacco Type: Smokeless Tobacco (Dip or Chew) Do You Dip or Chew Tobacco: Yes; Hx Alcohol Use: No Hx Substance Use: No Preferred Language: Greenlandic Communication Ability: Effective Business Technology Professor Required: No Beliefs That Will Affect Care: None marital status: Current Living Situation: Spouse and Family current occupational status: employed Feels Safe at Home: Yes Safety Concerns: Feels Safe At This Time Assistive Devices: None Review of Systems Review of Systems: All systems reviewed & are unremarkable except as noted in HPI & below Physical Exam Constitutional: WD/WN, vitals as above no acute distress Eyes: PERRL, conjunctivae normal, anicteric sclerae ENMT: external ear and nose normal, oropharynx normal Neck: trachea midline, no thyromegaly + thick neck Respiratory: normal respiratory effort, lungs clear to auscultation Cardiovascular: RRR, no murmur, no edema Vessels: normal carotid upstroke, femoral pulses present and radial pulses present; no JVD Extremities: no edema Gastrointestinal (Abdomen): normal bowel sounds, soft, nontender, no hepatosplenomegaly Results & Data Vital Signs (Past 12 Hours) Vital Signs Temp Pulse Pulse Resp BP BP Pulse Ox 10/15/25 07:37 36.3 C L 72 18 124/81 96 06/17/25 02:49 06/17/25 02:43 36.4 C L 88 16 133/91 98 06/17/25 02:00 73 15 109/73 97 06/17/25 00:24 76 06/17/25 00:00 67 16 113/80 97 06/16/25 22:30 82 19 127/90 97 06/16/25 22:03 72 25 H 131/92 98 06/16/25 21:31 76 21 129/75 98 O2 Del Method 06/17/25 07:37 Room Air 06/17/25 02:49 Room Air 06/17/25 02:43 Room Air 06/17/25 02:00 Room Air 06/17/25 00:24 06/17/25 00:00 Room Air 06/16/25 22:30 Room Air 06/16/25 22:03 Room Air 06/16/25 21:31 Room Air Laboratory Results Laboratory Results - last 24 hr 06/16/25 06/16/25 06/16/25 20:24 20:30 21:45 WBC 6.95 RBC 5.11 Hgb 13.7 L POC Hgb 14.6 Hct 41.6 L POC Hct 43 MCV 81.4 MCH 26.8 MCHC 32.9 RDW Std Deviation 36.6 RDW Coeff of Arturo 12.5 Plt Count 200 MPV 9.2 L Immature Gran % (Auto) 0.3 Neut % (Auto) 65.3 Lymph % (Auto) 24.2 [place] % (Auto) 7.6 Eos % (Auto) 2.3 Baso % (Auto) 0.3 Neut # (Auto) 4.54 Lymph # (Auto) 1.68 [place] # (Auto) 0.53 Eos # (Auto) 0.16 Baso # (Auto) 0.02 Immature Gran # (Auto) 0.02 PT 11.1 INR 1.1 APTT 26 PTT Ratio 1.0 POC Sodium 140 Sodium 138 POC Potassium 3.9 Potassium 3.9 POC Chloride 105 Chloride 105 Carbon Dioxide 26 POC Total CO2 24 Anion Gap 7 POC Anion Gap 16.0 POC BUN 8 BUN 10 Creatinine 1.41 H POC Creatinine 1.5 H Est Cr Clr Drug Dosing 80.9 eGFR 61.09 BUN/Creatinine Ratio 7.1 L Glucose 98 POC Glucose (other) 95 Estimat Average Glucose Hemoglobin A1c Calcium 9.2 POC Ioniz Calcium Sonny 1.19 Magnesium Troponin I High Sens 3.0 Lipase 64 Urine Opiates Screen Pos H U Codeine Confrm GC/MS Pending Ur Morphine (GC/MS) Pending Ur Hydrocodone (GC/MS) Pending Ur Norhydrocodone Pending Ur Noroxycodone Pending Urine Oxycodone (GC/MS) Pending U Oxymorphone GC/MS Pending Ur Methadone, Qual Neg Ur Hydromorphone (GC/MS) Pending Urine Fentanyl Screen Neg Urine Barbiturates Neg Ur Phencyclidine (PCP) Neg U Amphetamin/Meth Scrn Neg MDMA (Ecstasy) Screen Neg U Benzodiazepines Scrn Neg [place] < 0.1 L Ur Cocaine Metabolite Neg U Marijuana (THC) Screen Neg Drug Screen Comment Pending 06/16/25 06/17/25 22:24 05:36 WBC 4.70 L RBC 4.59 L Hgb 12.5 L POC Hgb Hct 37.6 L POC Hct MCV 81.9 MCH 27.2 MCHC 33.2 RDW Std Deviation 37.2 RDW Coeff of Arturo 12.6 Plt Count 155 MPV 9.4 Immature Gran % (Auto) 0.2 Neut % (Auto) 53.6 Lymph % (Auto) 32.8 [place] % (Auto) 9.8 Eos % (Auto) 3.0 Baso % (Auto) 0.6 Neut # (Auto) 2.52 Lymph # (Auto) 1.54 [place] # (Auto) 0.46 Eos # (Auto) 0.14 Baso # (Auto) 0.03 Immature Gran # (Auto) 0.01 PT INR APTT PTT Ratio POC Sodium Sodium 140 POC Potassium Potassium 3.8 POC Chloride Chloride 109 H Carbon Dioxide 24 POC Total CO2 Anion Gap 7 POC Anion Gap POC BUN BUN 9 Creatinine 1.10 D POC Creatinine Est Cr Clr Drug Dosing 103.7 eGFR 82.29 BUN/Creatinine Ratio 8.2 L Glucose 97 POC Glucose (other) Estimat Average Glucose 120 Hemoglobin A1c 5.8 H Calcium 8.4 L POC Ioniz Calcium Sonny Magnesium 1.8 Troponin I High Sens 2.6 2.8 Lipase Urine Opiates Screen U Codeine Confrm GC/MS Ur Morphine (GC/MS) Ur Hydrocodone (GC/MS) Ur Norhydrocodone Ur Noroxycodone Urine Oxycodone (GC/MS) U Oxymorphone GC/MS Ur Methadone, Qual Ur Hydromorphone (GC/MS) Urine Fentanyl Screen Urine Barbiturates Ur Phencyclidine (PCP) U Amphetamin/Meth Scrn MDMA (Ecstasy) Screen U Benzodiazepines Scrn [place] Ur Cocaine Metabolite U Marijuana (THC) Screen Drug Screen Comment PG Care Time/CCT Total # of Minutes Spent Total Time Spent with Patient: Total time spent is greater than 50% in coordination of care (as documented) at patient's floor/unit and/or counseling patient: Coding Level of Care Code 29369 IN/OBS CONSULT LVL 4,60M Diagnoses Chest pain R07.9 Chronic pain syndrome G89.4 GERD (gastroesophageal reflux disease) K21.9
[2025-06-17] MEDS: ATROPINE SULFATE 0.1 MG/ML 10ML SYR IV ONE (11:24)
[2025-06-17] MEDS: DOBUTamine HCL 12.5 MG/ML 20 ML VIAL IV ONE (11:24)
[2025-06-17] MEDS: METOPROLOL TARTRATE 1 MG/ML VIAL IV ONE (11:25)
[2025-06-17 11:38] VITALS: BP 137/92; TEMP 97.5; O2SAT 99
--- NOTE | 2025-06-17 11:56 | Communication Note ---
Date of Service: June 17, 2025 Patient presented with chest pain without EKG abnormality or cardiac enzyme elevation. Symptoms elicited by emotional stress no tachyarrhythmias. Referred for dobutamine stress echocardiogram with study negative to 85% age- predicted maximal heart rate no cardiac symptoms or evidence of ischemia Continue current therapies
[2025-06-17] MEDS: ATORVASTATIN 20 MG TAB PO SCH (12:57)
[2025-06-17] MEDS: FLUTICASONE PROPIONATE NA SPR 16 GM BTL SCH (12:57)
--- NOTE | 2025-06-17 13:17 | Discharge Summary ---
Discharge Summary Date of Service June 17, 2025 Principal Dx & Hospital Course #1 = Principal Diagnosis (1) Chest pain: per admitting service notes with addendum: 50-year-old male with past medical history significant for high triglycerides, prediabetes, chronic maxillary sinusitis, obstructive sleep apnea nontolerant to CPAP, uncontrolled hypertension, GERD, Romano's esophagus, fatty liver, renal angiomyolipoma, CKD stage IIIa, spondylolisthesis of lumbar region, postlaminectomy syndrome, multiple lipomas, degenerative disc disease, chronic pain syndrome, essential tremor, bipolar 2 disorder, erectile dysfunction, spinal cord stimulator status, generalized anxiety disorder, presents for chest pain. Patient states around 7 PM after coming from football practice noticed chest pain 8/10 in severity. Pain is all over the chest. Pressure-like feeling. No radiation. Associated with some shortness of breath. Possibly some sweating. Denies any dizziness. No nausea. No headache. Vision is okay. No runny nose or sore throat. No cough. No abdominal pain. Normal bowel and bladder movements. After Nitropaste and morphine in the ER pain is improving. Hemodynamics are okay. Chest pain,Acute Coronary Syndrome ruled out EKG and 2 sets of troponin negative Received Nitropaste and morphine in the ER Will continue nitro sublingual as needed and IV morphine as needed CTA chest and CTA abdomen pelvis no acute findings N.p.o. Will follow serial cardiac enzymes and echocardiogram Med/telemetry Cardiac consult in a.m. for further recommendations 06/17 evaluated by Cardiology Service s/p Dobutamine Stress Echo: negative for inducible ischemia patient feeling better Chest pain likely musculoskeletal etiology monitor blood pressure closely outpatient ff up with PCP in 1 week Hepatic steatosis seen on CT abdomen Further work up, management, and ff up as outpatient Prediabetes Will follow HbA1c levels: 5.8 ff up as outpatient Bipolar disorder Continue home medications Chronic pain On Belbuca and oxycodone as needed Obstructive sleep apnea Intolerant to CPAP machine Hyperlipidemia On statin GERD Romano's esophagus Omeprazole History of hypertension Currently not on medications Will monitor Erectile dysfunction On Cialis as needed Patient says did not use it for the last 1 month DVT prophylaxis SCDs Disposition d/c Home ff up with PCP in 1 week Full code Notes For Next Care Provider Medication Changes From Visit None Admission HPI Per Admitting Provider 50-year-old male with past medical history significant for high triglycerides, prediabetes, chronic maxillary sinusitis, obstructive sleep apnea nontolerant to CPAP, uncontrolled hypertension, GERD, Romano's esophagus, fatty liver, renal angiomyolipoma, CKD stage IIIa, spondylolisthesis of lumbar region, postlaminectomy syndrome, multiple lipomas, degenerative disc disease, chronic pain syndrome, essential tremor, bipolar 2 disorder, erectile dysfunction, spinal cord stimulator status, generalized anxiety disorder, presents for chest pain. Patient states around 7 PM after coming from football practice noticed chest pain 8/10 in severity. Pain is all over the chest. Pressure-like feeling. No radiation. Associated with some shortness of breath. Possibly some sweating. Denies any dizziness. No nausea. No headache. Vision is okay. No runny nose or sore throat. No cough. No abdominal pain. Normal bowel and bladder movements. After Nitropaste and morphine in the ER pain is improving. Hemodynamics are okay. Past medical history. As mentioned above. Past surgical history. Bone marrow aspiration for spine. Right carpal tunnel surgery. Colonoscopy. EGD. Osteogenic stimulator spine in 2014. Reconstructionof nose septum. Total thyroid lobectomy unilateral. Removal of turbinate bones. Lumbar laminectomy. Revision removal of spinal neuro lion trainer in 2022. Revision ulnar nerve at elbow right side. Lumbar spine fusion. Excision of soft tissue tumor in left thigh. Social history. . No smoking. Snuffs tobacco. Currently no alcohol as per records. No drug use. Family history. Brother had asthma. Paternal grandfather had blood disorder. Father had lung cancer. Multiple myeloma. Paternal cousin had thyroid cancer. Paternal uncle had cancer. Maternal aunt had pancreatic cancer. Admission Exam Per Admitting Provider General- Not in distress Head- atraumatic Eyes- PERRL. ENT- oropharynx clear Neck- supple, no JVD. Lungs- clear to auscultation no wheezing or crackles Heart- regular rhythm; no murmur, no gallop. Abdomen- normal bowel sounds, soft, nontender, no distension Extremities- no pretibial edema, no erythema seen Neuro- alert, oriented PERRL, no facial palsy; no dysarthria; moves extremities Discharge Exam General- oriented x 3, not in distress, speaks in sentences with no effort or accessory muscle use Eyes- anicteric Neck- no JVD Lungs- clear breath sounds bilaterally, no rales/wheezes Heart- normal rate, regular rhythm; no murmurs Abdomen- normal bowel sounds, nondistended, soft, nontender Extremities- no pretibial edema, no calf tenderness Neuro- alert, oriented x 3; no gross focal neurologic deficits Skin- warm & dry Updated Medication List Medication Instructions Recorded Confirmed Type omega 1-[id number]-fish oil 60 mg-90 1 cap PO DAILY 02/09/22 06/16/25 History mg-500 mg capsule (Fish Oil) dapsone 5 % topical gel 1 applic topical QAM 11/30/22 06/16/25 History fluticasone propionate 50 1 spray intranasal BID 11/30/22 06/16/25 History mcg/actuation nasal spray,suspension tazarotene 0.1 % topical gel 1 applic topical DAILY 11/30/22 06/16/25 History atomoxetine 80 mg capsule 80 mg PO HS 06/16/25 06/16/25 History atorvastatin 20 mg tablet 20 mg PO QAM 06/16/25 06/16/25 History buprenorphine HCl 300 mcg buccal 300 mcg buccal BID 06/16/25 06/16/25 History film (Belbuca) cyclobenzaprine 5 mg tablet 5 mg PO BID PRN MUSCLE SPASMS 06/16/25 06/16/25 History doxepin 150 mg capsule 150 mg PO HS 06/16/25 06/16/25 History lumateperone 42 mg capsule 42 mg PO HS 06/16/25 06/16/25 History (Caplyta) omeprazole 40 mg capsule,delayed 40 mg PO BID 06/16/25 06/16/25 History release oxycodone-acetaminophen 5 mg-325 1 tab PO Q6H PRN Pain 06/16/25 06/16/25 History mg tablet tadalafil 5 mg tablet 5 mg PO DIRECTED 06/16/25 06/17/25 History Hospital Stay Data Consultations 06/16/25 23:23 ED Decision to Admit Stat 06/17/25 08:00 Consult Cardiology Routine Diagnostic Imagining Performed Laboratory Results WBC 4.70 K/ul (4.8-10.8) L 06/17/25 05:36 RBC 4.59 M/uL (4.70-6.10) L 06/17/25 05:36 Hgb 12.5 g/dl (14.0-18.0) L 06/17/25 05:36 POC Hgb 14.6 g/dl (14.0-18.0) 06/16/25 20:30 Hct 37.6 % (42.0-52.0) L 06/17/25 05:36 POC Hct 43 % (42-52) 06/16/25 20:30 MCV 81.9 fL (80.0-100.0) 06/17/25 05:36 MCH 27.2 pg (25.0-34.0) 06/17/25 05:36 MCHC 33.2 g/dL (32.0-36.0) 06/17/25 05:36 RDW Std Deviation 37.2 fL (36.4-46.3) 06/17/25 05:36 RDW Coeff of Arturo 12.6 % (11.5-14.5) 06/17/25 05:36 Plt Count 155 K/uL (130-400) 06/17/25 05:36 MPV 9.4 fL (9.4-12.4) 06/17/25 05:36 Immature Gran % (Auto) 0.2 % 06/17/25 05:36 Neut % (Auto) 53.6 % 06/17/25 05:36 Lymph % (Auto) 32.8 % 06/17/25 05:36 [place] % (Auto) 9.8 % 06/17/25 05:36 Eos % (Auto) 3.0 % 06/17/25 05:36 Baso % (Auto) 0.6 % 06/17/25 05:36 Neut # (Auto) 2.52 K/uL (1.40-6.50) 06/17/25 05:36 Lymph # (Auto) 1.54 K/uL (1.20-3.40) 06/17/25 05:36 [place] # (Auto) 0.46 K/uL (0.11-0.59) 06/17/25 05:36 Eos # (Auto) 0.14 K/uL (0.00-0.50) 06/17/25 05:36 Baso # (Auto) 0.03 K/uL (0.00-0.20) 06/17/25 05:36 Immature Gran # (Auto) 0.01 K/uL (0.01-0.20) 06/17/25 05:36 PT 11.1 Seconds (9.0-12.0) 06/16/25 20:24 INR 1.1 (0.9-1.1) 06/16/25 20:24 APTT 26 Seconds (21-31) 06/16/25 20:24 PTT Ratio 1.0 06/16/25 20:24 POC Sodium 140 mmol/L (135-144) 06/16/25 20:30 Sodium 140 mmol/L (136-145) 06/17/25 05:36 POC Potassium 3.9 mmol/L (3.3-5.0) 06/16/25 20:30 Potassium 3.8 mmol/L (3.5-5.1) 06/17/25 05:36 POC Chloride 105 mmol/L (101-112) 06/16/25 20:30 Chloride 109 mmol/L (98-107) H 06/17/25 05:36 Carbon Dioxide 24 mmol/L (21-32) 06/17/25 05:36 POC Total CO2 24 mmol/L (24-31) 06/16/25 20:30 Anion Gap 7 (3-11) 06/17/25 05:36 POC Anion Gap 16.0 mmol/L (16-25) 06/16/25 20:30 POC BUN 8 mg/dl (7-18) 06/16/25 20:30 BUN 9 mg/dl (6-23) 06/17/25 05:36 Creatinine 1.10 mg/dl (0.6-1.4) D 06/17/25 05:36 POC Creatinine 1.5 mg/dl (0.6-1.3) H 06/16/25 20:30 Est Cr Clr Drug Dosing 103.7 ml/min 06/17/25 05:36 eGFR 82.29 06/17/25 05:36 BUN/Creatinine Ratio 8.2 (10-20) L 06/17/25 05:36 Glucose 97 mg/dl (70-99(Fasting)) 06/17/25 05:36 POC Glucose (other) 95 mg/dl (70-99) 06/16/25 20:30 Estimat Average Glucose 120 mg/dl 06/17/25 05:36 Hemoglobin A1c 5.8 % (4.5-5.6) H 06/17/25 05:36 Calcium 8.4 mg/dl (8.6-10.3) L 06/17/25 05:36 POC Ioniz Calcium Sonny 1.19 mmol/l (1.12-1.32) 06/16/25 20:30 Magnesium 1.8 mg/dl (1.7-2.4) 06/17/25 05:36 Troponin I High Sens 2.8 pg/ml (0-20) 06/17/25 05:36 Lipase 64 U/L (11-82) 06/16/25 20:24 Urine Opiates Screen Pos (Neg) H 06/16/25 21:45 Ur Methadone, Qual Neg (Neg) 06/16/25 21:45 Urine Fentanyl Screen Neg (Neg) 06/16/25 21:45 Urine Barbiturates Neg (Neg) 06/16/25 21:45 Ur Phencyclidine (PCP) Neg (Neg) 06/16/25 21:45 U Amphetamin/Meth Scrn Neg (Neg) 06/16/25 21:45 MDMA (Ecstasy) Screen Neg (Neg) 06/16/25 21:45 U Benzodiazepines Scrn Neg (Neg) 06/16/25 21:45 [place] < 0.1 mmol/L (0.6-1.2) L 06/16/25 20:24 Ur Cocaine Metabolite Neg (Neg) 06/16/25 21:45 U Marijuana (THC) Screen Neg (Neg) 06/16/25 21:45 Impressions Chest X-Ray 06/16/25 20:22 Exam(s): XR CXR 1 VIEW EXAM: XR Chest, 1 View CLINICAL HISTORY: Reason for exam: Chest pain, nonspecific. TECHNIQUE: Frontal view of the chest. COMPARISON: 11/30/2022 FINDINGS: Lungs: Unremarkable. No consolidation. Pleural space: Unremarkable. No pneumothorax. Heart: Unremarkable. No cardiomegaly. Mediastinum: Unremarkable. Normal mediastinal contour. Bones/joints: Unremarkable. No acute fracture. IMPRESSION: No acute pulmonary pathology Electronically signed by: Cristian Mathur MD 06/16/25 22:06 PM Abdomen/Pelvis CTA 06/16/25 21:09 Exam(s): CTA ABDOMEN + PELVIS With Contrast IV Amt: 115 ml optiray 320 EXAM: CT Abdomen and Pelvis With Intravenous Contrast CLINICAL HISTORY: Reason for exam: ro dissection. TECHNIQUE: Axial computed tomographic images of the abdomen and pelvis with intravenous contrast. CTDI is 70.48 mGy and DLP is 3039.38 mGy-cm. Automated exposure control was utilized for the study. A dose lowering technique was utilized adhering to the principles of ALARA. CONTRAST: Patient received 115 ml optiray 320 of IV contrast COMPARISON: No relevant prior studies available. FINDINGS: VASCULATURE: Aorta: No acute findings. No abdominal aortic aneurysm. No dissection. Celiac trunk and mesenteric arteries: No acute findings. No occlusion or significant stenosis. Renal arteries: No acute findings. No occlusion or significant stenosis. Iliac arteries: No acute findings. No occlusion or significant stenosis. Lung bases: Unremarkable. No mass. No consolidation. ABDOMEN: Liver: Hepatic steatosis. Gallbladder and bile ducts: Unremarkable. No calcified stones. No ductal dilation. Pancreas: Unremarkable. No ductal dilation. No mass. Spleen: Unremarkable. No splenomegaly. Adrenals: Unremarkable. No mass. Kidneys and ureters: Simple 5.2 cm left renal cysts. No follow-up of these simple cysts is necessary. No hydronephrosis. Stomach and bowel: Unremarkable. No obstruction. No mucosal thickening. PELVIS: Appendix: No findings to suggest acute appendicitis. Bladder: Mildly distended urinary bladder. Reproductive: Unremarkable as visualized. ABDOMEN and PELVIS: Intraperitoneal space: Unremarkable. No significant fluid collection. No free air. Bones/joints: Postop changes L4 through S1 interbody fusion postop changes anterior fusion L5-S1. No acute fracture. No dislocation. Soft tissues: Unremarkable. Lymph nodes: Unremarkable. No enlarged lymph nodes. IMPRESSION: No acute findings in the arteries of the abdomen and pelvis. Electronically signed by: Cristian Mathur MD 06/16/25 22:18 PM Chest CTA 06/16/25 21:09 Exam(s): CTA CHEST W/WO Contrast IV Amt: 116 ml optiray 320 EXAM: CT Angiography Chest Without and With Intravenous Contrast CLINICAL HISTORY: Reason for exam: ro dissection. TECHNIQUE: Axial computed tomographic angiography images of the chest without and with intravenous contrast. CTDI is 70.48 mGy and DLP is 3039.38 mGy-cm. Automated exposure control was utilized for the study. A dose lowering technique was utilized adhering to the principles of ALARA. MIP reconstructed images were created and reviewed. CONTRAST: Patient received 116 ml optiray 320 of IV contrast COMPARISON: No relevant prior studies available. FINDINGS: Pulmonary arteries: Unremarkable. No pulmonary embolism. Aorta: No acute findings. No thoracic aortic aneurysm. Lungs: Unremarkable. No mass. No consolidation. Pleural space: Unremarkable. No significant effusion. No pneumothorax. Heart: Unremarkable. No cardiomegaly. No significant pericardial effusion. No evidence of RV dysfunction. Bones/joints: No acute fracture. No dislocation. Soft tissues: Unremarkable. Lymph nodes: Unremarkable. No enlarged lymph nodes. Other findings: Please see separate dictation for details of the intra abdominal contents. IMPRESSION: No acute findings in the visualized arteries of the chest. Electronically signed by: Cristian Mathur MD 06/16/25 22:54 PM Pending Results Patient Have Any Pending Studies at Discharge: No Discharge Instructions Given to Patient (Per Discharging Provider) RESUME YOUR USUAL MEDICATIONS. NO HEAVY LIFTING OR STRENUOUS EXERCISE FOR THE NEXT FEW DAYS. PLEASE CALL YOUR PRIMARY CARE PHYSICIAN OR RETURN TO THE ER IF WITH WORSENING OF SYMPTOMS, INCLUDING CHEST PAIN, SHORTNESS OF BREATH, FEVER/CHILLS, ETC FOLLOW UP WITH PRIMARY CARE PHYSICIAN OUTLINED ABOVE. Total Time Total Time Spent Total Time Spent (In Minutes): 40 minutes
[2025-06-17 15:04] VITALS: PULSE 81
[2025-06-17] MEDS ORDERED: DOXEPIN HCL 75 MG CAPSULE PO SCH (21:00)
[2025-06-17] MEDS ORDERED: ATOMOXETINE HCL 40 MG CAPSULE PO SCH (21:00)
== END 2025-06-17 16:16 | disposition home or self-care (01) ==
LOC: ED 20:11 → 4W 20:11